=== PATIENT | male | born 1965 | race Hispanic/Latino ===

== ENCOUNTER 2023-03-31 10:15 | Outpatient (CLI) | payer OTHER | END 2023-03-31 10:16 | disposition home or self-care (01) | LOC: SCSMRI 10:15 | PROVIDERS: ATTEND Orthopaedic Surgery | DX: M23.92 Unspecified internal derangement of left knee (principal); S82.142A Displaced bicondylar fracture of left tibia, initial encounter for closed fracture; S83.412A Sprain of medial collateral ligament of left knee, initial encounter; M25.462 Effusion, left knee ==

== ENCOUNTER 2023-10-07 14:25 | Outpatient (CLI) | payer OTHER | END 2023-10-07 14:26 | disposition home or self-care (01) | LOC: SCSMRI 14:25 | PROVIDERS: ATTEND Family Medicine | DX: S49.91XA Unspecified injury of right shoulder and upper arm, initial encounter (principal); M19.011 Primary osteoarthritis, right shoulder; M25.811 Other specified joint disorders, right shoulder ==